=== PATIENT | male | born 1985 | race Caucasian/White ===

== ENCOUNTER 2022-04-19 19:10 | Emergency (ER) | payer BC, OTHER ==
[2022-04-19] MEDS ORDERED: Tetracaine HCl/PF 0.5% 4 ML Bottle EYEBOTH ONE (19:11)
[2022-04-19] MEDS ORDERED: Tetracaine HCl/PF 0.5% 4 ML Bottle ONE (21:22)
[2022-04-19] MEDS ORDERED: Erythromycin Base 0.5% Ophth Oint 1 GM Tube EYEBOTH ONE (21:32)
[2022-04-19] MEDS ORDERED: Diphtheria,Pertussis(Acell),Tetanus Vaccine 0.5 ML Syringe IM ONE (21:34)
== END 2022-04-19 22:07 | disposition home or self-care (01) ==
LOC: MW.ED 19:10
DX: T15.01XA Foreign body in cornea, right eye, initial encounter (principal); Z23 Encounter for immunization
CPT/HCPCS: 65220; 90471; 90715; 99283; A9270

== ENCOUNTER 2023-04-16 17:27 | Emergency (ER) | payer BC, OTHER ==
[2023-04-16] MEDS ORDERED: Tetracaine HCl/PF 0.5% 4 ML Bottle EYERT STA (17:57)
[2023-04-16] MEDS ORDERED: Erythromycin Base 0.5% Ophth Oint 1 GM Tube EYERT STA (18:37)
== END 2023-04-16 19:00 | disposition home or self-care (01) ==
LOC: MW.ED 17:27
DX: S05.01XA Injury of conjunctiva and corneal abrasion without foreign body, right eye, initial encounter (principal); F17.210 Nicotine dependence, cigarettes, uncomplicated; W45.8XXA Other foreign body or object entering through skin, initial encounter
CPT/HCPCS: 99283; A9270; 99282; J3490